=== PATIENT | male | born 2000 ===

== ENCOUNTER 2020-02-27 08:12 | Emergency (ER) | payer SELFPAY ==
[2020-02-27 08:16] VITALS: BP 139/69
--- NOTE | 2020-02-27 08:31 | Emergency Department Report ---
Chief Complaint: Urogenital-Male Stated Complaint: STD Time Seen by Provider: 02/27/20 08:26 - HPI History of Present Illness: Patient complains of penile discharge x 1 day. Denies any dysuria/hematuria, penile/testicular lesions/swelling, fever/chills/sweats, abdominal pain, or swollen/painful joints. He is well-appearing and stable for outpatient treatment. Clinic list provided to patient. Discussed signs and symptoms that should prompt immediate return to the emergency department in detail with patient who verbalizes understanding. - Exam Vital Signs: Vital Signs 02/27/20 08:13 Temperature 97.7 F Pulse Rate 81 Respiratory 16 Rate Blood Pressure 139/69 O2 Sat by Pulse 97 Oximetry MSE screening note: Focused history and physical exam performed. Due to findings the following was ordered: ED Disposition for MSE Clinical Impression: Penile discharge Disposition: DC-01 TO HOME OR SELFCARE Is pt being admited?: No Condition: Stable Instructions: Urethritis, Adult Additional Instructions: Please follow-up with a clinic from the list provided for further testing and evaluation within 2 days. Refrain from any sexual intercourse until you are tested and treated and given further instruction by provider. ED Physical Exam - General Limitations: No Limitations General appearance: alert, in no apparent distress - Head Head exam: Present: atraumatic, normocephalic - Eye Eye exam: Absent: scleral icterus - Respiratory Respiratory exam: Absent: respiratory distress - Cardiovascular Cardiovascular Exam: Present: regular rate - GI/Abdominal GI/Abdominal exam: Present: soft. Absent: tenderness - Neurological Exam Neurological exam: Present: alert, oriented X3, normal gait - Psychiatric Psychiatric exam: Present: normal affect, normal mood - Skin Skin exam: Present: warm, dry, intact, normal color. Absent: rash ED Review of Systems ROS: Stated complaint: STD Other details as noted in HPI Constitutional: denies: fever, malaise ENT: denies: throat pain Respiratory: denies: shortness of breath Cardiovascular: denies: chest pain Genitourinary: discharge. denies: urgency, dysuria, frequency, hematuria, testicular pain, testicular mass Musculoskeletal: denies: joint swelling, arthralgia Skin: denies: rash, lesions, change in color Hematological/Lymphatic: denies: swollen glands
== END 2020-02-27 08:33 | disposition left against medical advice (07) ==
LOC: ED 08:12
DX: R36.9 Urethral discharge, unspecified (principal)
CPT/HCPCS: 99282